=== PATIENT | female | born 1975 | race Caucasian/White ===

== ENCOUNTER 2016-04-24 12:13 | Emergency (ER) | payer OTHER ==
[~2016-04-24] VITALS: Ht 154.9 cm; Wt 56.7 kg
[2016-04-24] MEDS ORDERED: DOXYCYCLINE HY100 M2 PO (12:40)
[2016-04-24 13:02] LABS: ABSOLUTE BASOPHIL COUNT 0.1 /CUMM (0.0-0.2); ABSOLUTE EOSINOPHIL COUNT 0.1 /CUMM (0.0-0.7); ABSOLUTE GRANULOCYTE CT 14.1 /CUMM (1.4-6.5); ABSOLUTE LYMPH COUNT 2.7 /CUMM (1.2-3.4); ABSOLUTE MONOCYTE COUNT 0.7 /CUMM (0.10-0.60); BASOPHIL % 0.4 % (0.0-2.0); EOSINOPHIL % 0.8 % (0-5); GRANULOCYTE % 79.6 % (42.2-75.2); HEMATOCRIT 35.4 % (37-47); MEAN CORPUSCULAR HGB 30.7 PG (27.0-31.0); MEAN CORPUSCULAR HGB CONC 34.5 G/DL (33.0-37.0); MEAN CORPUSCULAR VOLUME 89.2 FL (81.0-99.0); MEAN PLATELET VOLUME 6.8 FL (7.4-10.4); PLATELET COUNT 321 /CUMM (130-400); RBC DISTRIBUTION WIDTH 12.7 % (11.5-14.5); RED BLOOD CELL CT 3.97 /CUMM (4.20-5.40); WHITE BLOOD CELL COUNT 17.8 /CUMM (4.8-10.8)
--- NOTE | 2016-04-24 13:08 | ED GI/GU/ABDOMINAL COMPLAINT ---
History of Present Illness General Chief Complaint: Female Urogenital Problems Stated Complaint: PELVIC PAIN Source: patient Exam Limitations: no limitations Vital Signs & Intake/Output Vital Signs & Intake/Output Vital Signs Date Time Temp Pulse Resp B/P Pulse O2 O2 Flow FiO2 Ox Delivery Rate 04/24 1704 100.8 80 18 112/78 96 Room Air 04/24 1640 100.7 84 20 96 Room Air 04/24 1437 100.2 87 16 108/72 100 Room Air ED Intake and Output 04/25 0000 04/24 1200 Intake Total Output Total Balance Patient 125 lb Weight Allergies Coded Allergies: codeine (Severe, HEART RACING 04/24/16) Reconcile Medications Doxycycline Hyclate 100 MG CAPSULE 1 CAP PO BID LYME (Reported) Triage Note: PT TO ED C/O RIGHT GROIN PAIN X A FEW WEEKS. C/O NAUSEA, DENIES V/D. POOR PO INTAKE. DENIES S/S. Triage Nurses Notes Reviewed? yes ? Y Is pt currently ? No Onset: Abrupt Duration: week(s): (4), intermittent Timing: recent history Quality/Severity: cramping Location: PELVIS/RLQ Radiation: no radiation Activities at Onset: none No Modifying Factors: none HPI: 41-year-old female comes into emergency room for further evaluation of right lower abdominal pain has been going on for the past 4 weeks. Patient reports that she's been getting normal menstruations on a monthly basis. Denies any vaginal discharge or vaginal bleeding or urinary symptoms. Denies any nausea vomiting or changes in appetite. Denies any changes in bowel movement. (SINGH ANDUJAR) Past History Travel History Traveled to [place] past 21 day No Medical History Any Pertinent Medical History? see below for history Surgical History Surgical History: none Psychosocial History What is your primary language Swedish Tobacco Use: Current Daily Use Daily Tobacco Use Amount/Type: => 5 Cigarettes daily ETOH Use: denies use Illicit Drug Use: denies illicit drug use Family History Hx Contributory? No (SINGH ANDUJAR) Review of Systems Review of Systems Constitutional: Reports: no symptoms. EENTM: Reports: no symptoms. Respiratory: Reports: no symptoms. Cardiovascular: Reports: no symptoms. GI: Reports: see HPI. Genitourinary: Reports: see HPI. Musculoskeletal: Reports: no symptoms. Skin: Reports: no symptoms. Neurological/Psychological: Reports: no symptoms. Hematologic/Endocrine: Reports: no symptoms. Immunologic/Allergic: Reports: no symptoms. All Other Systems: Reviewed and Negative (SINGH ANDUJAR) Physical Exam Physical Exam General Appearance: well developed/nourished, no apparent distress, alert, awake Head: atraumatic, normal appearance Eyes: Bilateral: normal appearance, EOMI. Ears, Nose, Throat, Mouth: hearing grossly normal, moist mucous membrane Neck: normal inspection, full range of motion Respiratory: normal breath sounds, no respiratory distress Cardiovascular: regular rate/rhythm Gastrointestinal: soft, tenderness Back: normal inspection Extremities: normal range of motion Neurologic/Psych: awake, alert, oriented x 3, normal gait Skin: intact, normal color Core Measures ACS in differential dx? No Severe Sepsis Present: No Septic Shock Present: No (SINGH ANDUJAR) Progress Differential Diagnosis: appendicitis, cholecystitis, ectopic , endometritis, gastritis, ovarian cyst, ovarian torsion, PID/cervicitis, peptic ulcer, perforated viscous, UTI/pyelo Plan of Care: Orders Procedure Date/time Status Add-on Test (ER Only) 04/24 1337 Active HUMAN BETA HCG TITRE 04/24 1242 Complete Diagnostic Imaging: Viewed by Me: Ultrasound. Discussed w/RAD: Ultrasound. Radiology Impression: EXAM TYPE: US - US TRANSVAG; US-PELVIC CARBAJAL EXAMINATION: ULTRASOUND OBSTETRICAL PELVIC ULTRASOUND PELVIC, RIGHT LOWER QUADRANT CLINICAL INFORMATION: Right lower quadrant pain. Elevated white blood cell count. COMPARISON: None. TECHNIQUE: Curved array transducer utilized for grayscale B-mode and color Doppler interrogation of the uterus, adnexa and right lower quadrant. FINDINGS: OBSTETRICAL ULTRASOUND: A single intrauterine gestation is identified. Regular cardiac activity is identified at a rate of 154 bpm. lie orientation is longitudinal. respiratory movement, movement and tone are identified. There is a posterior placenta. Lower placenta lobe border is not well seen. Amniotic fluid volumes are subjectively normal. A single deepest pocket of 4 cm is identified. BIOMETRY: Biparietal diameter 2.66 cm equals 14 weeks 5 days. Head circumference 10.67 equals 15 weeks 1 day. Abdominal circumference 9.65 cm equals 15 weeks 6 days. Femur length 1.91 cm equals 15 weeks 5 days. Overall estimated age by ultrasound is 15 weeks and 3 days with an estimated date of delivery of 10/13/2016. Reported last menstrual period is 03/29/2016 which would have predicted estimated date of delivery of 01/03/2017; this is discordant with ultrasound measurements. anatomic survey not performed. UTERUS: No uterine abnormalities. No adnexal abnormality seen. PELVIC/RIGHT LOWER QUADRANT ULTRASOUND: In the area of pain mobile bowel is depicted. No noncompressible bowel loops demonstrated. No free fluid or adenopathy. No collection. IMPRESSION : There is a single live intrauterine gestation. Estimated age by ultrasound is 15 weeks and 3 days for an estimated date of delivery of 10/13/2016. This is discordant with reported LMP of 03/29/2016. The lower margin of a posterior placenta is not well-defined. Formal anatomic survey not performed. Follow-up evaluation is recommended in 4-6 weeks. Ultrasound of the right lower quadrant is unremarkable. DICTATED BY: ROSENDA GONZALEZ MD DATE/TIME DICTATED:04/24/161633 SPRINKLER FITTER APPRENTICE:MARINA DATE/TIME TRANSCRIBED:04/24/161633 Initial ED EKG: none Comments: 04/24/2016 5:26:30 PM Patient clinically looks well. Pain has been going on for a month intermittently. Very low suspicion for appendicitis at this time. Patient has elevated white count with low-grade fever but history is not consistent with appendicitis. Negative McBurney's point. Pain is located in the right pelvis. Patient denies any vaginal discharge. Patient reevaluated multiple times. Patient was seen by DR CAO. Discussed the possibility of early appendicitis with patient. Patient understands and agrees with plan of care. (DADA GARCIA,SINGH) Departure Departure Disposition: HOME OR SELF CARE Condition: Stable Clinical Impression Primary Impression: Secondary Impressions: Abdominal pain Referrals: JARED ACEVEDO,LINDA Brown (PCP/Family) Additional Instructions: Follow-up with your INSURANCE SALES PRODUCER doctor. Discussed the possibility of early appendicitis. Please return for any increased right lower abdominal pain, fever , vomiting, decreased appetite or any other concerns worsening symptoms. Please go over all results of today's visit with your primary care doctor. Contact your primary care doctor to let them know you were here in the emergency room. There may be nonspecific findings which may not be related to your visit today here in the emergency room but may require further evaluation and chronic monitoring by your primary care doctor. If you had a laceration today the chance of foreign body always remains. You should follow-up with your primary care doctor for recheck in 3-5 days for a wound check. If you had an x-ray done there is a chance that a fracture could have been missed on initial read and you should follow-up with your primary care doctor for repeat x-rays if symptoms persist. If your blood pressure was elevated here in the emergency room please have rechecked by her primary care doctor within the next 48 hours by your primary care doctor. If you were prescribed a narcotic here in the emergency room or any type of controlled substances you're not allowed to drive while taking this medication or operate any type of heavy machinery. Narcotics can make you feel lightheaded dizziness nausea and can cause constipation. You may need to last picker a stool softener. Thank you for choosing [facility] emergency room. Please return to the emergency room immediately if you have any other concerns worsening of symptoms. Departure Forms: Customer Survey General Discharge Information (SINGH ANDUJAR) PA/GROCERY DEPARTMENT MANAGER Co-Sign Statement Statement: ED Attending supervision documentation- [] I saw and evaluated the patient. I have also reviewed all the pertinent lab results and diagnostic results. I agree with the findings and the plan of care as documented in the PA's/GROCERY DEPARTMENT MANAGER's documentation. [X] I have reviewed the ED Record and agree with the PA's/GROCERY DEPARTMENT MANAGER's documentation. [] Additions or exceptions (if any) to the PAs/GROCERY DEPARTMENT MANAGER's note and plan are summarized below: [] (NASH ACEVEDO,CORY)
[2016-04-24 17:04] VITALS: BP 112/78
--- NOTE | 2016-04-24 17:05 | ULTRASOUND REPORT ---
EXAMINATION: ULTRASOUND OBSTETRICAL PELVIC ULTRASOUND PELVIC, RIGHT LOWER QUADRANT CLINICAL INFORMATION: Right lower quadrant pain. Elevated white blood cell count. COMPARISON: None. TECHNIQUE: Curved array transducer utilized for grayscale B-mode and color Doppler interrogation of the uterus, adnexa and right lower quadrant. FINDINGS: OBSTETRICAL ULTRASOUND: A single intrauterine gestation is identified. Regular cardiac activity is identified at a rate of 154 bpm. lie orientation is longitudinal. respiratory movement, movement and tone are identified. There is a posterior placenta. Lower placenta lobe border is not well seen. Amniotic fluid volumes are subjectively normal. A single deepest pocket of 4 cm is identified. BIOMETRY: Biparietal diameter 2.66 cm equals 14 weeks 5 days. Head circumference 10.67 equals 15 weeks 1 day. Abdominal circumference 9.65 cm equals 15 weeks 6 days. Femur length 1.91 cm equals 15 weeks 5 days. Overall estimated age by ultrasound is 15 weeks and 3 days with an estimated date of delivery of 10/13/2016. Reported last menstrual period is 03/29/2016 which would have predicted estimated date of delivery of 01/03/2017; this is discordant with ultrasound measurements. anatomic survey not performed. UTERUS: No uterine abnormalities. No adnexal abnormality seen. PELVIC/RIGHT LOWER QUADRANT ULTRASOUND: In the area of pain mobile bowel is depicted. No noncompressible bowel loops demonstrated. No free fluid or adenopathy. No collection. IMPRESSION: There is a single live intrauterine gestation. Estimated age by ultrasound is 15 weeks and 3 days for an estimated date of delivery of 10/13/2016. This is discordant with reported LMP of 03/29/2016. The lower margin of a posterior placenta is not well-defined. Formal anatomic survey not performed. Follow-up evaluation is recommended in 4-6 weeks. Ultrasound of the right lower quadrant is unremarkable.
== END 2016-04-24 17:25 ==
LOC: ERH 12:13
PROVIDERS: Physician Assistant Medical
DX: O26.92 Pregnancy related conditions, unspecified, second trimester (principal); R10.9 Unspecified abdominal pain; O99.332 Smoking (tobacco) complicating pregnancy, second trimester; Z3A.15 15 weeks gestation of pregnancy; Z72.0 Tobacco use
CPT/HCPCS: 76817; 81003; 81025

== ENCOUNTER 2016-05-25 19:40 | Emergency (ER) | payer OTHER ==
[~2016-05-25 19:40] MED LIST: DOXYCYCLINE HY100 M2 PO
--- NOTE | 2016-05-25 21:00 | ED GI/GU/ABDOMINAL COMPLAINT ---
History of Present Illness General Chief Complaint: Female Urogenital Problems Stated Complaint: PT IS 19WKS HAVING CONTRACTION Source: patient, old records Exam Limitations: no limitations Vital Signs & Intake/Output Vital Signs & Intake/Output Vital Signs Date Time Temp Pulse Resp B/P Pulse O2 O2 Flow FiO2 Ox Delivery Rate 05/25 2002 97.7 93 20 105/70 97 Allergies Coded Allergies: codeine (Severe, HEART RACING 04/24/16) Reconcile Medications Doxycycline Hyclate 100 MG CAPSULE 1 CAP PO BID LYME (Reported) Triage Note: PER PT 19 WEEKS DUE 10/13/16. . BEGAN "LEAKING A FLUID 48 HRS AGO. CO DIARRHEA PER PT SPOTTING X 24 HRS. PAIN TO BILAT GROIN Triage Nurses Notes Reviewed? yes ? Y Is pt currently ? No Duration: day(s): (2), waxing and waning Timing: recent history Location: left lower quadrant, right lower quadrant Activities at Onset: none Prior Abdominal Problems: none No Modifying Factors: none Associated Symptoms: abdominal pain HPI: This is a 41 year old female who presents to the ER with chief complaint of being worried that she is having some contractions. She is 19 weeks by dates. Patient was diagnosed with last month on the 8th in the ED. She states that she went to have a termination of but then decided not to go through with it. No vaginal bleeding but states that she feels like she has been leaking some fluid, unsure if it is urine. She feels tightness in bilateral lower quadrants. Past History Travel History Traveled to [place] past 21 day No Medical History Any Pertinent Medical History? see below for history Neurological: NONE EENT: NONE Cardiovascular: NONE Respiratory: NONE Gastrointestinal: NONE Hepatic: NONE Renal: NONE Musculoskeletal: NONE Psychiatric: NONE Endocrine: NONE Surgical History Surgical History: none Psychosocial History What is your primary language Hebrew Tobacco Use: Current Daily Use Daily Tobacco Use Amount/Type: => 5 Cigarettes daily Family History Hx Contributory? No Review of Systems Review of Systems Constitutional: Denies: chills, fever. EENTM: Reports: no symptoms. Respiratory: Denies: cough, short of breath. Cardiovascular: Denies: chest pain, palpitations. GI: Reports: abdominal pain. Denies: diarrhea, nausea, vomiting. Genitourinary: Reports: discharge. Denies: dysuria, frequency, hematuria, hesitation, nocturia , pain. Musculoskeletal: Denies: back pain. Skin: Reports: no symptoms. Neurological/Psychological: Reports: no symptoms. Hematologic/Endocrine: Denies: bruising, bleeding, polyuria, polydipsia. Immunologic/Allergic: Denies: splenectomy. All Other Systems: Reviewed and Negative Physical Exam Physical Exam General Appearance: well developed/nourished, alert, awake, anxious Head: atraumatic, active bleeding Eyes: Bilateral: normal appearance, PERRL, EOMI. Ears, Nose, Throat, Mouth: hearing grossly normal, moist mucous membrane Neck: normal inspection, supple, full range of motion Respiratory: normal breath sounds, chest non-tender, no respiratory distress Cardiovascular: regular rate/rhythm Peripheral Pulses: 2+ radial (R), 2+ radial (L) Gastrointestinal: soft, non-tender, gravid Back: normal inspection, normal range of motion Neurologic/Psych: no motor/sensory deficits, awake, alert, oriented x 3 Skin: intact, normal color, warm/dry Core Measures ACS in differential dx? No Severe Sepsis Present: No Septic Shock Present: No Progress Differential Diagnosis: intrauterine , THREATENED MISCARRIAGE, MISSED AB Plan of Care: Bedside ultrasound shows fetus with good movement, visualized cardiac activity and large amount of amniotic fluid, severeal pockets visualized. Patient in no distress. DR MING CHRISTY NIAGARA OB. She will follow up with them on Monday in the office. Pelvic rest instructed. Initial ED EKG: none Departure Departure Time of Disposition: 2127 Disposition: HOME OR SELF CARE Condition: Stable Clinical Impression Primary Impression: Referrals: JARED ACEVEDO,LINDA Brown (PCP/Family) Additional Instructions: Follow up with your RN POST PARTUM doctor in the office. No tampons or intercourse until you are cleared to do so. Departure Forms: Customer Survey General Discharge Information
[2016-05-25 21:40] VITALS: BP 110/80
== END 2016-05-25 21:42 ==
LOC: ERH 19:40
DX: O26.92 Pregnancy related conditions, unspecified, second trimester (principal); R10.9 Unspecified abdominal pain; Z3A.19 19 weeks gestation of pregnancy